=== PATIENT | female | born 1970 | race Two or more races ===

== ENCOUNTER 2019-10-10 11:33 | Emergency (ER) | payer MEDICAID ==
[~2019-10-10] VITALS: Ht 170.2 cm; Wt 68.0 kg
--- NOTE | 2019-10-10 11:36 | NUR ---
came in for cough, congestion, and chills x 4 days. denies any fevers, to er 9, hooked to monitor, awaiting md loving.
--- NOTE | 2019-10-10 11:44 | NUR ---
dr mahan at bedside
--- NOTE | 2019-10-10 12:01 | NUR ---
RAPID FLU SWAB SENT TO LAB
--- NOTE | 2019-10-10 13:06 | NUR ---
Patient discharged to home in stable condition. Written and verbal after care instructions given. Patient verbalizes understanding of instruction.
[2019-10-10 13:08] VITALS: BP 128/71
== END 2019-10-10 13:09 | disposition home or self-care (01) ==
LOC: ER 11:35
DX: J20.9 Acute bronchitis, unspecified (principal); G35 Multiple sclerosis; Z90.710 Acquired absence of both cervix and uterus; Z60.2 Problems related to living alone
CPT/HCPCS: 71045-TC

== ENCOUNTER 2023-07-02 12:15 | Emergency (ER) | payer MEDICAID, OTHER ==
[~2023-07-02] VITALS: Ht 170.2 cm; Wt 79.4 kg
[2023-07-02 12:33] VITALS: TEMP 98.4
[2023-07-02] MEDS ORDERED: IBUPROFEN 600 MG TABLET ONE (12:49)
[2023-07-02] MEDS ORDERED: IBUPROFEN 600 MG TABLET PO ONE (13:00)
[2023-07-02 15:10] VITALS: BP 106/74; O2SAT 98
== END 2023-07-02 15:10 | disposition home or self-care (01) ==
LOC: ER 12:25
DX: M79.642 Pain in left hand (principal); M79.641 Pain in right hand; Z90.49 Acquired absence of other specified parts of digestive tract; Z60.2 Problems related to living alone
CPT/HCPCS: 73130-TC

== ENCOUNTER 2023-07-04 13:28 | Emergency (ER) | payer OTHER ==
[~2023-07-04] VITALS: Ht 167.6 cm; Wt 49.9 kg
[2023-07-04 13:47] VITALS: BP 101/61; TEMP 99; O2SAT 100
== END 2023-07-04 17:21 | disposition home or self-care (01) ==
LOC: ER 13:31
DX: M25.562 Pain in left knee (principal); M25.561 Pain in right knee; Z60.2 Problems related to living alone
CPT/HCPCS: 73564-TC

== ENCOUNTER 2023-07-17 15:34 | Emergency (ER) | payer OTHER ==
[~2023-07-17] VITALS: Ht 167.6 cm; Wt 65.8 kg
[2023-07-17 16:11] VITALS: BP 141/72; TEMP 98.4; O2SAT 100
== END 2023-07-17 17:00 | disposition home or self-care (01) ==
LOC: ER 15:39
DX: S62.396D Other fracture of fifth metacarpal bone, right hand, subsequent encounter for fracture with routine healing (principal); X58.XXXD Exposure to other specified factors, subsequent encounter

== ENCOUNTER 2024-08-03 18:56 | Emergency (ER) | payer OTHER ==
[~2024-08-03] VITALS: Ht 167.6 cm; Wt 72.6 kg
[2024-08-03] MEDS ORDERED: IBUPROFEN 600 MG TABLET ONE (20:02)
[2024-08-03] MEDS ORDERED: ACETAMINOPHEN ES 500 MG TABLET ONE (20:02)
[2024-08-03] MEDS: ACETAMINOPHEN ES 500 MG TABLET PO ONE (20:09)
[2024-08-03] MEDS: IBUPROFEN 600 MG TABLET PO ONE (20:09)
[2024-08-03] MEDS ORDERED: TRAMADOL HCL 50 MG TABLET ONE (20:21)
[2024-08-03] MEDS: TRAMADOL HCL 50 MG TABLET PO ONE (20:23)
[2024-08-03] MEDS ORDERED: TRAM50TA2 PO (20:38)
[2024-08-03 20:58] VITALS: BP 125/87; TEMP 98.3; O2SAT 98
== END 2024-08-03 20:58 | disposition home or self-care (01) ==
LOC: ER 20:10
DX: S52.691A Other fracture of lower end of right ulna, initial encounter for closed fracture (principal); S93.491A Sprain of other ligament of right ankle, initial encounter; S80.01XA Contusion of right knee, initial encounter; R51.9 Headache, unspecified; G35 Multiple sclerosis; Z60.2 Problems related to living alone; W01.0XXA Fall on same level from slipping, tripping and stumbling without subsequent striking against object, initial encounter; Y93.89 Activity, other specified; Y92.89 Other specified places as the place of occurrence of the external cause; Y99.8 Other external cause status
CPT/HCPCS: 70450-TC; 73110; 73564-TC; 73610-TC

== ENCOUNTER 2024-09-09 11:05 | Emergency (ER) | payer OTHER ==
[~2024-09-09] VITALS: Ht 170.2 cm; Wt 68.0 kg
[~2024-09-09 11:05] MED LIST: TRAM50TA2 PO
[2024-09-09 12:26] VITALS: BP 124/83; TEMP 97.6
[2024-09-09 12:30] VITALS: O2SAT 93
== END 2024-09-09 13:25 | disposition home or self-care (01) ==
LOC: ER 11:31
DX: S62.101A Fracture of unspecified carpal bone, right wrist, initial encounter for closed fracture (principal); G35 Multiple sclerosis; W18.30XA Fall on same level, unspecified, initial encounter; Y93.89 Activity, other specified; Y92.89 Other specified places as the place of occurrence of the external cause; Y99.8 Other external cause status
CPT/HCPCS: 73110